=== PATIENT | female | born 2000 | race Caucasian/White ===

== ENCOUNTER → 2018-03-02 08:23 | Outpatient (CLI) | payer MEDICAID ==
[2016-05-12 06:50] VITALS: BMI 43.8
[~2018-03-02 08:23] MED LIST: HYDROCODON-ACE1 EAC7 PO
== END | disposition home or self-care (01) ==
LOC: D.CT 02-16 15:00
DX: R10.9 Unspecified abdominal pain (principal)

== ENCOUNTER 2020-04-11 05:05 | Day surgery (SDC) | payer MEDICAID ==
[~2020-04-11] VITALS: Ht 157.5 cm; Wt 111.1 kg
[~2020-04-11 05:05] MED LIST changes: +ALBUTEROL SULF8.5 GM INH; +KENALOG 0.1 % 115 GM TOPICAL; +OMEPRAZOLE; +QVAR REDIHALE10.6 G1 INH; +SINGULAIR10 MG PO; +SPRINTEC 28 DA1 EAC1 PO
[2020-04-11 05:46] LABS: HEMOGLOBIN 13.5 g/dL (12-16); MCH 28.5 pg (26.0-34.0); MCHC 33.8 g/dL (31.0-37.0); MCV 84.4 fL (80.0-100.0); MEAN PLATELET VOLUME 9.6 fL (7.4-10.4); RBC 4.74 10x6/uL (4.00-5.40); RDW 12.7 % (11.5-14.5); WBC 7.7 10x3/uL (4.8-10.8)
[2020-04-11 06:00] LABS: HCG SERUM NEGATIVE (NEGATIVE)
[2020-04-11 06:10] VITALS: BP 126/71; Ht 157.5 cm; Wt 111.1 kg
--- NOTE | 2020-04-11 09:18 | NUR ---
0900 IV D/C'D WITH CANNULA INTACT, PRESSURE HELD, AND DRSG PLACED. DISCHARGE INSTRUCTIONS GIVEN, BOTH PT AND MOTHER VERBALIZED AN UNDERSTANDING. DISCHARGED IN STABLE CONDITION AND WITHOUT C/O
--- NOTE | 2020-04-11 17:14 | OP ---
PATIENT NAME: NIC BOONE MEDICAL RECORD: [id number] :98 LOCATION:[facility] ADMISSION DATE: SURGEON: KARINA HERCULES DO DATE OF OPERATION: 04/11/2020 PROCEDURE PERFORMED: Ganglion cyst excision of the left wrist. PREOPERATIVE DIAGNOSIS: Ganglion cyst, left wrist. POSTOPERATIVE DIAGNOSIS: Ganglion cyst, left wrist. INDICATIONS: Ms. Boone The patient is a 20-year-old female who has had ganglion cyst of the left wrist for quite some time. It got to the point where it was really bothering her and affecting her activities of daily living. We got an MRI to ensure this what it was and indeed this showed that it was coming off the dorsal wrist joint. I informed her of the risks of this including infection, bleeding, damage to nerves and vessels in the area, continued pain and recurrence of the cyst. She was okay with that and signed the consent. SURGEON: Karina Hercules DO DESCRIPTION OF PROCEDURE: The patient received Ancef prior to starting the procedure. She was taken to the operative suite, laid in supine position, given general anesthetic and LMA was placed. The left upper extremity was then prepped and draped in sterile fashion. A timeout was performed. Everyone was in agreeance with the correct site, side, patient and the procedure. I then exsanguinated the left upper extremity with an Esmarch and tourniquet was inflated to 250 mmHg, it was up for 8 minutes. I then made an incision over the cyst and dissection down, it ruptured. I then dissected out the root off the wrist joint and removed it and then used a bipolar to seal the wrist joint at the site where it came off. The tourniquet was then let down and site was injected with 0.25% Marcaine with epinephrine, approximately 10 mL. I closed it with 4-0 Monocryl in inverted interrupted fashion and then put Dermabond glue on top. She was then dressed with Adaptic, 4 x 4s, cast padding and Coban lightly wrapped. Awakened and taken to recovery in stable condition. The tourniquet was up for 8 minutes. BLOOD LOSS: Minimal. COMPLICATIONS: None. 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
== END 2020-04-11 09:05 | disposition home or self-care (01) ==
LOC: D.OPS 05:05 → D.PAN 07:00 → D.OPS 09:05
PROVIDERS: Anesthesiology; ATTEND Orthopaedic Surgery
DX: M67.432 Ganglion, left wrist (principal); M25.532 Pain in left wrist; M25.531 Pain in right wrist; E66.01 Morbid (severe) obesity due to excess calories

== ENCOUNTER → 2020-04-16 12:56 | Outpatient (CLI) | payer MEDICAID ==
[2020-04-11 06:10] VITALS: BMI 44.9
== END | disposition home or self-care (01) ==
LOC: D.MRI 12:56
PROVIDERS: ATTEND Pediatrics
DX: S06.0X0A Concussion without loss of consciousness, initial encounter (principal)